=== PATIENT | male | born 1950 | race Caucasian/White ===

== ENCOUNTER 2020-11-09 08:22 | Outpatient (REF) | payer MEDICARE, SELFPAY ==
[2020-11-09 09:19] LABS: MANUAL DIFF FLAG NO
[2020-11-09 09:23] LABS: Basophils Absolute Auto 0.1 X10*3/uL (0.0-0.2); Eosinophils Absolute Auto 0.3 X10*3/uL (0.0-0.4); Eosinophils Percent Auto 3.3 % (0-4); Hemoglobin 12.8 g/dl (14.0-18.0); Imm Gran Abs Auto 0.02 X10*3/uL (0.00-0.03); Imm Gran Pct Auto 0.2 % (0.0-0.4); Lymphocytes Absolute Auto 2.9 X10*3/uL (1.2-4.9); Lymphocytes Percent Auto 32.1 % (20-40); Mean Corpuscular HGB Conc 32.8 g/dl (31.0-36.0); Mean Corpuscular Hemoglobin 33.7 pg (27.0-33.0); Mean Corpuscular Volume 102.6 fL (80-98); Mean Platelet Volume 10.5 fL (9.4-12.4); Monocytes Absolute Auto 0.6 X10*3/uL (0.1-1.2); Monocytes Percent Auto 6.9 % (2-11); Neutrophils Absolute Auto 5.2 X10*3/uL (2.0-8.3); Neutrophils Percent Auto 56.5 % (45-73); Platelet Count 197 X10*3/uL (160-400); Red Cell Distribution Width 12.7 % (11.0-16.0); White Blood Count 9.1 X10*3/uL (4.8-10.8)
[2020-11-09 09:50] LABS: Alanine Aminotransferase 11 U/L (0-40); Albumin Level 4.2 g/dL (3.5-5.0); Alkaline Phosphatase 77 U/L (39-117); Anion Gap 12 (12-20); Aspartate Amino Transferase 16 U/L (5-37); Bilirubin Total 0.5 mg/dL (0.0-1.0); Blood Urea Nitrogen 12 mg/dL (9-16); Calcium 9.3 mg/dL (8.4-10.2); Carbon Dioxide 22 mmol/L (22-29); Chloride 109 mmol/L (96-108); Cholesterol 133 mg/dL; Estimated Glomerular Filt Rate > 60; Glucose Random 86 mg/dL (60-115); HDL Cholesterol 38 mg/dL; LDL Cholesterol Calculated 72 mg/dl; Potassium 4.3 mmol/L (3.3-5.1); Sodium 139 mmol/L (135-145); Total Protein 6.9 g/dL (6.5-8.0); Triglycerides 115 mg/dL
[2020-11-09 10:13] LABS: Free T4 (Free Thyroxine) 0.79 ng/dL (0.71-1.85); Thyroid Stimulating Hormone 1.77 uIU/mL (0.32-4.0)
[2020-11-09 10:28] LABS: Folate > 20.0 ng/mL (> or = 4.0); Vitamin B12 168 pg/mL (200-900)
== END 2020-11-09 08:23 | disposition home or self-care (01) ==
LOC: HO.LAB 08:22
PROVIDERS: PCP Internal Medicine; Visit Provider Internal Medicine
DX: I10 Essential (primary) hypertension (principal); E78.00 Pure hypercholesterolemia, unspecified; I25.10 Atherosclerotic heart disease of native coronary artery without angina pectoris
CPT/HCPCS: 36415; 80053; 80061; 82607; 82746; 84439; 84443; 85025

== ENCOUNTER 2023-07-03 10:54 | Outpatient (AMB) | payer MEDICARE, SELFPAY ==
--- NOTE | 2023-07-03 11:02 | A.OFFPC_ITS ---
Vital Signs 07/03/23 11:05 Height 6 ft 4 in Weight 98.43 kg BMI 26.4 BP 112/66 Blood Pressure Location Lt brachial Position Sitting Pulse 65 Pulse Source Pulse Oximeter Pulse Oximetry (%) 97 Oxygen Delivery Method Room Air Intake Visit Reasons: Med review Intake Note: Patient is here to follow up on medication review. [place] Tender Required: No Field Account Director: Not Required per policy Accompanied by: Self / Same As Patient Allergies penicillin V Allergy (Unknown, Verified 07/03/23 11:04) Unknown Penicillins [PENICILLINS] Allergy (Unknown, Verified 07/03/23 11:04) UNKNOWN PCN Allergy (Unknown, Uncoded 07/03/23 11:04) throat Tobacco use date assessed: 07/03/23 Fall risk assessment: No Falls in past year Last assessed Fall Risk: 07/03/23 Dental Screening Dental Screen Date: 07/03/23 Did you have a dental visit in the last 12 months?: Yes Did you have a dental problem in the last 6 months where you did not have access to dental care?: No Was dental information given to patient?: Patient has dentist HPI Med review HPI Details 72-year-old overweight male smoker with hypertension hypercholesterolemia coronary artery disease lumbar degenerative disc disease coming in for follow-up. Review of the notes has been follow-up with cardiology echocardiogram done January 2023 showing normal left ventricular size left ventricular hypertrophy ejection fraction of 50% ascending aorta 3.6 sinus us of Valsalva 3.[address] Ferraro patient has seen the nurse practitioner in November 2021 patient has lumbar degenerative disc disease with posterior facet rhizotomy with lumbar fusion done April 2018. Dr. Singh echo done recently. smokes still a pack a day. does marijuana also. [facility] Medical History (Updated 07/03/23 @ 11:36 by Stevie Oneill MD) Screening for diabetes mellitus Screening for prostate cancer Closed right clavicular fracture Tubular adenoma of colon Fatty liver PTSD (post-traumatic stress disorder) Lumbar degenerative disc disease Coronary artery disease Obesity (BMI 30-39.9) Tobacco abuse Hypercholesterolemia Hypertension Surgical History History of colonoscopy History of back surgery History of ear surgery Family History Mother No problems noted. Father No problems noted. Social History (Updated 07/03/23 @ 11:33 by Stevie Oneill MD) Housing: House Alcohol intake: current Alcohol intake frequency: a few times a week Alcohol type: beer Comment: 6 pack in a week red wine whisky Patient Tobacco Use Status: Current everyday Tobacco user Tobacco use type: Cigarette Cigarette Packs Per Day: 1 Cigarettes Per Day: 20 e-Cigarette/Vaping Use: Never Used Second Hand Smoke Exposure: Yes Substance Use Type: Marijuana Substance Use Frequency: Daily service: Yes Current occupational status: retired and disabled Cognitive needs: No Hearing needs: No Vision needs: Yes (reading glasses) Questionnaire PHQ-9 Over the last 2 weeks, how often have you been bothered by any of the following problems? 1. Little interest or pleasure in doing things: not at all 2. Feeling down, depressed, or hopeless: not at all 3. Trouble falling or staying asleep, or sleeping too much: not at all 4. Feeling tired or having little energy: not at all 5. Poor appetite or overeating: not at all 6. Feeling bad about yourself - or that you are a failure or have let yourself or your family down: not at all 7. Trouble concentrating on things, such as reading the newspaper or watching television: not at all 8. Moving or speaking so slowly that other people could have noticed. Or the opposite - being so fidgety or restless that you have been moving around a lot more than usual: not at all 9. Thoughts that you would be better off or of hurting yourself in some way: not at all Total score: 0 Depression Screening Interpretation: Negative Depression Screening Done: Yes Source: Developed by Drs. Tyler Pemberton, Alissa Rodriguez, Johnathon Beckford and colleagues, with an educational amie from [employer]. Thrive Questionnaire Date Thrive assessed: 07/03/23 I am a: Patient What is your living situation today?: I have a steady place to live Within the past 12 months, did the food you bought not last and you didn't have the money to get more?: Never true Within the past 12 months, did you worry whether your food would run out before you got money to buy more?: Never true Do you have trouble paying for medicines?: No Do you have trouble getting transportation to medical appointments?: No Do you have trouble paying your heating and electricity bill?: No Do you have trouble taking care of your child, family member or friend?: No Do you have trouble with day-to-day activities such as bathing, preparing meals, shopping, managing finances, etc.?: No Are you currently unemployed and looking for a job?: No Are you interested in more education?: No Currently or been in a relationship where the following occur: no concerns reported THRIVE Score: 0 AUDIT C Alcohol Use Questionnaire (AUDIT-C) 1. How often do you have a drink containing alcohol?: Never Total Score: 0 MARGRET-7 AMB Questionnaire MARGRET-7 Date MARGRET - 7 assessed: 07/03/23 Feeling nervous, anxious, or on edge: 0 = Not at all Not being able to stop or control worryin = Not at all Worrying too much about different things: 0 = Not at all Trouble relaxin = Not at all Being so restless that it is hard to sit still: 0 = Not at all Becoming easily annoyed or irritable: 0 = Not at all Feeling afraid as if something awful might happen: 0 = Not at all Total MARGRET-7 score (0-4 normal; 5-9 mild; 10-14 moderate; 15-21 severe): 0 Source: Developed by Drs. Tyler Pemberton, Alissa Rodriguez, Johnathon Beckford and colleagues, with an educational amie from [employer]. Physical exam (Primary Care) Vital Signs: Last Vital Signs Pulse 65 07/03/23 11:05 BP 112/66 07/03/23 11:05 Pulse Ox 97 07/03/23 11:05 Oxygen Delivery Method Room Air 07/03/23 11:05 BMI result Body Mass Index 26.4 Tobacco/Smoking Status: Tobacco use Status Tobacco use date assessed 07/03/23 07/03/23 11:13 Patient Tobacco Use Status Current everyday Tobacco 07/03/23 11:33 Tobacco use type Cigarette 07/03/23 11:33 e-Cigarette/Vaping Use Never Used 07/03/23 11:33 PHQ-9: PHQ-9 Score PHQ-9: Total score 0 07/03/23 11:23 Depression Screening Interpretation: Negative Thrive Assessment: Date of Thrive Assessment Date Thrive assessed 07/03/23 07/03/23 11:04 Currently or been in a relationship where the following occur: no concerns reported Const General: alert; No acute distress Eyes Conjunctivae: conjunctivae normal Resp Auscultation: clear to auscultation bilaterally Cardio Rate: regular rate Rhythm: regular rhythm GI Inspection: Yes normal to inspection Extrem General: Yes normal to inspection and No edema Immunizations pneumoc 20-shonda conj-dip cr(PF) 0.5 mL IM syringe Performing Provider: Stevie Oneill MD Performing Location: [facility] Administered by: Eve Kaiser CMA on 07/03/23 11:42 Dose Route Admin Location Dispensed Lot Number Expiration Date [employer] 0.5 mL IM Left Deltoid 0.5 mL [id number] 06/11/24 4768-0206-25 [employer] VIS Given Date VIS Provided VIS Publication Date 07/03/23 Single Vaccine 21 Eligibility Eligibility Date Funding Source Not [facility] Eligible 07/03/23 Private Assessment and Plan Assessment & Plan (1) Coronary artery disease: Comment: Myocardial infarction 2013 Dr. Singh stress 2017 stent placement\ Echocardiogram January 2023 normal left ventricular size mild concentric left ventricular hypertrophy EF 50% ascending aorta 3.6 sinus of Valsalva 3.9 Code(s): I25.10 - Atherosclerotic heart disease of [place] coronary artery without angina pectoris Plan: Control the cholesterol, weight, blood pressure, presently on clopidogrel (2) Hypertension: Code(s): I10 - Essential (primary) hypertension Plan: Continue with blood pressure medication. Decrease salt intake and exercise amlodipine 5 mg once a day lisinopril 10 mg once a day and metoprolol 100 mg once a day (3) Hypercholesterolemia: Code(s): E78.00 - Pure hypercholesterolemia, unspecified Plan: Avoid fried foods, chicken skin, eggs, butter margarine, pastries and meat. Be it pork or beef they have a lot of cholesterol LDL goal of less than 70 and triglyceride of less than 150. (4) Tobacco abuse: Code(s): Z72.0 - Tobacco use Plan: Patient is strongly advised to stop smoking. (5) Lumbar degenerative disc disease: Comment: [facility] 1996, Dr. Crowposterior facetotomy with lumbar fusion April 2018 Code(s): M51.36 - Other intervertebral disc degeneration, lumbar region Plan: Lose the weight and keep active (6) Colonoscopy refused: Code(s): Z53.20 - Procedure and treatment not carried out because of patient's decision for unspecified reasons Orders: Orders Comprehensive Met. Panel Today E78.00 - Pure hypercholesterolemia, unspecified Lipid Panel Today E78.00 - Pure hypercholesterolemia, unspecified Complete Blood Count Auto Diff Today E78.00 - Pure hypercholesterolemia, unspecified Free T4 (Free Thyroxine) Today E78.00 - Pure hypercholesterolemia, unspecified Thyroid Stimulating Hormone Today E78.00 - Pure hypercholesterolemia, unspecified Vitamin B12 and Folate Today E78.00 - Pure hypercholesterolemia, unspecified Pneumococcal 20 Immunization Today Z23 - Encounter for immunization Coding Level of Care Code Est Pt Level 4 (18091) Diagnoses Coronary artery disease I25.10 Hypertension I10 Hypercholesterolemia E78.00 Tobacco abuse Z72.0 Lumbar degenerative disc disease M51.36 Colonoscopy refused Z53.20
[2023-07-03 11:05] VITALS: BP 112/66; PULSE 65; O2SAT 97; BMI 26.4
== END 2023-07-03 11:54 | disposition home or self-care (01) ==
PROVIDERS: PCP Internal Medicine; Visit Provider Internal Medicine
DX: I25.10 Atherosclerotic heart disease of native coronary artery without angina pectoris (principal); I10 Essential (primary) hypertension; E78.00 Pure hypercholesterolemia, unspecified; Z72.0 Tobacco use; M51.36 Other intervertebral disc degeneration, lumbar region; Z53.20 Procedure and treatment not carried out because of patient's decision for unspecified reasons; Z23 Encounter for immunization
CPT/HCPCS: 90471; 90677; 99214

== ENCOUNTER 2024-07-04 09:07 | Outpatient (AMB) | payer MEDICARE, SELFPAY ==
[2024-07-04 09:18] VITALS: BP 130/72; PULSE 67; TEMP 36.2; O2SAT 100; BMI 25.2
--- NOTE | 2024-07-04 09:18 | A.OFFPC_ITS ---
Vital Signs 07/04/24 09:18 Height 6 ft 4 in Weight 207 lb BMI 25.2 BP 130/72 Blood Pressure Location Lt brachial Position Sitting Pulse 67 Pulse Source Pulse Oximeter Temp 97.1 F Temp Source Temporal Artery Scan Pulse Oximetry (%) 100 Oxygen Delivery Method Room Air Intake Visit Reasons: 1 y/r follow up Accompanied by: Self / Same As Patient Allergies penicillin V Allergy (Unknown, Verified 07/04/24 09:25) Unknown Penicillins [PENICILLINS] Allergy (Unknown, Verified 07/04/24 09:25) UNKNOWN PCN Allergy (Unknown, Uncoded 07/04/24 09:25) throat Medication List - Last Reconciled 07/04/24 by Stevie Oneill MD amlodipine 5 mg PO DAILY aspirin 81 mg PO DAILY folic acid 1 mg PO DAILY lisinopril 10 mg PO DAILY metoprolol succinate ER 100 mg PO DAILY rosuvastatin 20 mg PO DAILY Tobacco use date assessed: 07/04/24 Fall risk assessment: No Falls in past year Last assessed Fall Risk: 07/04/24 Dental Screening Dental Screen Date: 07/04/24 Did you have a dental visit in the last 12 months?: No Did you have a dental problem in the last 6 months where you did not have access to dental care?: No Was dental information given to patient?: No HPI 1 y/r follow up HPI Details 73-year-old male noted 10 lb weight loss with smoker hypertension hypercholesterolemia coronary artery disease lumbar degenerative disc disease coming in for follow-up. Patient was last seen in June 2023 patient had colonoscopy done with tubular adenoma in 2012 and was advised repeat but patient declined. Review of the notes patient was last seen by Cardiology in January 2022 myocardial infarction in 2012 drug-eluting stent implantation lad occlu jenifer. Patient's last blood work was in 2020 with anemia creatinine is 1.13 LDL of 72 vitamin B12 is low.- 2022 states did not see cardiology yet. [facility] Medical History (Updated 07/03/23 @ 11:36 by Stevie Oneill MD) Screening for diabetes mellitus Screening for prostate cancer Closed right clavicular fracture Tubular adenoma of colon Fatty liver PTSD (post-traumatic stress disorder) Lumbar degenerative disc disease Coronary artery disease Obesity (BMI 30-39.9) Tobacco abuse Hypercholesterolemia Hypertension Surgical History History of colonoscopy History of back surgery History of ear surgery Family History Mother No problems noted. Father No problems noted. Social History Housing: House Alcohol intake: current Alcohol intake frequency: a few times a week Alcohol type: beer Comment: 6 pack in a week red wine whisky Patient Tobacco Use Status: Current everyday Tobacco user Tobacco use type: Cigarette Cigarette Packs Per Day: 1 Cigarettes Per Day: 20 e-Cigarette/Vaping Use: Never Used Second Hand Smoke Exposure: Yes Substance Use Type: Marijuana service: Yes Current occupational status: retired and disabled Cognitive needs: No Hearing needs: No Vision needs: Yes (reading glasses) Questionnaire PHQ-9 Over the last 2 weeks, how often have you been bothered by any of the following problems? 1. Little interest or pleasure in doing things: not at all 2. Feeling down, depressed, or hopeless: not at all 3. Trouble falling or staying asleep, or sleeping too much: not at all 4. Feeling tired or having little energy: not at all 5. Poor appetite or overeating: not at all 6. Feeling bad about yourself - or that you are a failure or have let yourself or your family down: not at all 7. Trouble concentrating on things, such as reading the newspaper or watching television: not at all 8. Moving or speaking so slowly that other people could have noticed. Or the opposite - being so fidgety or restless that you have been moving around a lot more than usual: not at all 9. Thoughts that you would be better off or of hurting yourself in some way: not at all Total score: 0 Depression Screening Interpretation: Negative Depression Screening Done: Yes 76904 - PHQ-9 Billing: Yes Source: Developed by Drs. Tyler Pemberton, Alissa Rodriguez, Johnathon Beckford and colleagues, with an educational amie from [employer]. Thrive Questionnaire Date Thrive assessed: 07/04/24 I am a: Patient What is your living situation today?: I have a steady place to live Within the past 12 months, did the food you bought not last and you didn't have the money to get more?: Never true Within the past 12 months, did you worry whether your food would run out before you got money to buy more?: Never true Do you have trouble paying for medicines?: No Do you have trouble getting transportation to medical appointments?: No Do you have trouble paying your heating and electricity bill?: No Do you have trouble taking care of your child, family member or friend?: No Do you have trouble with day-to-day activities such as bathing, preparing meals, shopping, managing finances, etc.?: No Are you currently unemployed and looking for a job?: No Are you interested in more education?: No Please select the resources that you would like help with: None Currently or been in a relationship where the following occur: No concerns reported THRIVE Score: 0 AUDIT C Alcohol Use Questionnaire (AUDIT-C) 1. How often do you have a drink containing alcohol?: 2-4 times a month 2. How many drinks containing alcohol do you have on a typical day when you are drinking?: 5 or 6 3. How often do you have six or more drinks on one occasion?: Never Total Score: 4 MARGRET-7 AMB Questionnaire MARGRET-7 Date MARGRET - 7 assessed: 07/04/24 ([facility] suffers from [facility] Feeling nervous, anxious, or on edge: 0 = Not at all Not being able to stop or control worryin = Not at all Worrying too much about different things: 0 = Not at all Trouble relaxin = Not at all Being so restless that it is hard to sit still: 0 = Not at all Becoming easily annoyed or irritable: 0 = Not at all Feeling afraid as if something awful might happen: 0 = Not at all Total MARGRET-7 score (0-4 normal; 5-9 mild; 10-14 moderate; 15-21 severe): 0 Source: Developed by Drs. Tyler Pemberton, Alissa Rodriguez, Johnathon Beckford and colleagues, with an educational amie from [employer]. MARGRET-7 Assessment Billing MARGRET-7 Assessment Tool: MARGRET-7 Assessment 95613 Physical exam (Primary Care) Vital Signs: Last Vital Signs Temp 97.1 F 07/04/24 09:18 Pulse 67 07/04/24 09:18 BP 130/72 07/04/24 09:18 Pulse Ox 100 07/04/24 09:18 Oxygen Delivery Method Room Air 07/04/24 09:18 BMI result Body Mass Index 25.2 Tobacco/Smoking Status: Tobacco use Status Tobacco use date assessed 07/04/24 07/04/24 09:25 Patient Tobacco Use Status Current everyday Tobacco 07/04/24 09:25 Tobacco use type Cigarette 07/04/24 09:25 e-Cigarette/Vaping Use Never Used 07/04/24 09:25 PHQ-9: PHQ-9 Score PHQ-9: Total score 0 07/04/24 09:25 Depression Screening Interpretation: Negative Thrive Assessment: Date of Thrive Assessment Date Thrive assessed 07/04/24 07/04/24 09:25 Currently or been in a relationship where the following occur: No concerns reported Const General: alert; No acute distress Eyes Conjunctivae: conjunctivae normal Resp Auscultation: clear to auscultation bilaterally Cardio Rate: regular rate Rhythm: regular rhythm GI Inspection: Yes normal to inspection Extrem General: Yes normal to inspection and No edema Coding Level of Care Code Est Pt Level 4 (81060) Complex EM visit Add On G2211 Diagnoses Colonoscopy refused Z53.20 Coronary artery disease I25.10 Tobacco abuse Z72.0 Hypercholesterolemia E78.00 Hypertension I10 Additional Codes MARGRET-7 Assessment Billing - MARGRET-7 Assessment Tool: MARGRET-7 Assessment 64324 ([id number]) PHQ-9 - 86822 - PHQ-9 Billing: Yes ([id number]) Assessment & Plan Assessment & Plan (1) Colonoscopy refused: Code(s): Z53.20 - Procedure and treatment not carried out because of patient's decision for unspecified reasons Category: Medical Plan: Patient has been reminded that patient had a tubular adenoma on colonoscopy in 2012 (2) Coronary artery disease: Comment: Myocardial infarction 2013 Dr. Singh stress 2017 stent placement\ Echocardiogram January 2023 normal left ventricular size mild concentric left ve ntricular hypertrophy EF 50% ascending aorta 3.6 sinus of Valsalva 3.9 Code(s): I25.10 - Atherosclerotic heart disease of [place] coronary artery without angina pectoris Category: Medical Plan: Control the cholesterol, weight, blood pressure, on aspirin only (3) Tobacco abuse: Code(s): Z72.0 - Tobacco use Category: Medical Plan: Patient is strongly advised to stop smoking (4) Hypercholesterolemia: Code(s): E78.00 - Pure hypercholesterolemia, unspecified Category: Medical Plan: Avoid fried foods, chicken skin, eggs, butter margarine, pastries and meat. Be it pork or beef they have a lot of cholesterol LDL goal of less than 70 and triglyceride of less than 150 on rosuvastatin 20 mg once a day patient needs to have blood work (5) Hypertension: Code(s): I10 - Essential (primary) hypertension Category: Medical Plan: Continue with blood pressure medication. Decrease salt intake and exercise on lisinopril amlodipine and metoprolol blood pressure is controlled Orders: Orders Complete Blood Count Auto Diff Today I25.10 - Atherosclerotic heart disease of [place] coronary artery without angina pectoris Free T4 (Free Thyroxine) Today I25.10 - Atherosclerotic heart disease of [place] coronary artery without angina pectoris Comprehensive Met. Panel Today I25.10 - Atherosclerotic heart disease of [place] coronary artery without angina pectoris Thyroid Stimulating Hormone Today I25.10 - Atherosclerotic heart disease of [place] coronary artery without angina pectoris Lipid Panel Today E78.00 - Pure hypercholesterolemia, unspecified, I25.10 - Atherosclerotic heart disease of [place] coronary artery without angina pectoris Ferritin Today I25.10 - Atherosclerotic heart disease of [place] coronary artery without angina pectoris Reticulocyte Count Today I25.10 - Atherosclerotic heart disease of [place] coronary artery without angina pectoris IRON PROFILE Today I25.10 - Atherosclerotic heart disease of [place] coronary artery without angina pectoris Vitamin B12 and Folate Today I25.10 - Atherosclerotic heart disease of [place] coronary artery without angina pectoris
== END 2024-07-04 10:20 | disposition home or self-care (01) ==
LOC: HO.HMCH 09:08
PROVIDERS: PCP Internal Medicine; Visit Provider Internal Medicine
DX: Z53.20 Procedure and treatment not carried out because of patient's decision for unspecified reasons (principal); I25.10 Atherosclerotic heart disease of native coronary artery without angina pectoris; Z72.0 Tobacco use; E78.00 Pure hypercholesterolemia, unspecified; I10 Essential (primary) hypertension

== ENCOUNTER → 2024-07-04 09:07 | Outpatient (BNVA) | payer MEDICARE, SELFPAY | PROVIDERS: PCP Internal Medicine; Visit Provider Internal Medicine | DX: I25.10 Atherosclerotic heart disease of native coronary artery without angina pectoris (principal); E78.00 Pure hypercholesterolemia, unspecified; I10 Essential (primary) hypertension; Z72.0 Tobacco use | CPT/HCPCS: 96127; 99212 ==

== ENCOUNTER 2024-07-26 07:50 | Outpatient (REF) | payer MEDICARE, SELFPAY ==
--- OUTSIDE RECORDS SUMMARY | 2024-07-26 07:56 | XMS_ITS | Continuity of Care Document ---
Author Name [facility] Organization [facility] Care Team Providers Care Warehouse Handler Name Role Phone [facility] Unavailable Unavailable Problems Combined list of problems [...] reactions to drug (finding) Eruption active 8 [place] [facility] [place] [facility] PENICILLIN Propensity to adverse reactions to drug (finding) active 8 [facility]
[2024-07-26 08:06] LABS: MANUAL DIFF FLAG NO
[2024-07-26 08:17] LABS: Basophils Absolute Auto 0.1 X10*3/uL (0.0-0.2); Basophils Percent Auto 0.9 % (0-2); Eosinophils Absolute Auto 0.2 X10*3/uL (0.0-0.4); Hematocrit 37.3 % (42.0-52.0); Hemoglobin 12.3 g/dl (14.0-18.0); Imm Gran Abs Auto 0.05 X10*3/uL (0.00-0.03); Imm Gran Pct Auto 0.6 % (0.0-0.4); Immature Retic Fraction 11.6 % (2.3-13.4); Lymphocytes Percent Auto 34.8 % (20-40); Mean Corpuscular Hemoglobin 32.3 pg (27.0-33.0); Mean Corpuscular Volume 97.9 fL (80.0-98.0); Mean Platelet Volume 9.5 fL (9.4-12.4); Monocytes Absolute Auto 0.4 X10*3/uL (0.1-1.2); Monocytes Percent Auto 5.1 % (2-11); Neutrophils Absolute Auto 4.9 x10*3/uL (2.0-8.3); Neutrophils Percent Auto 56.6 % (45-73); Platelet Count 279 X10*3/uL (160-400); Red Blood Count 3.81 X10*6/uL (4.60-5.80); Red Cell Distribution Width 12.8 % (11.0-16.0); Retic HGB Equivalent 35.3 pg (30.0-35.0); Reticulocyte Percent 1.1 % (0.5-1.8); Reticulocytes Absolute 0.042 X10*6/uL (0.026-0.095); White Blood Count 8.6 X10*3/uL (4.8-10.8)
[2024-07-26 08:45] LABS: Alanine Aminotransferase 25 U/L (0-40); Albumin Level 3.4 g/dL (3.5-5.0); Alkaline Phosphatase 73 U/L (39-117); Anion Gap 12 (12-20); Aspartate Amino Transferase 25 U/L (5-37); Bilirubin Total 0.3 mg/dL (0.0-1.0); Blood Urea Nitrogen 12 mg/dL (9-16); Carbon Dioxide 18 mmol/L (22-29); Chloride 112 mmol/L (96-108); Cholesterol 102 mg/dL (<200); Estimated Glomerular Filt Rate > 60; Glucose Random 90 mg/dL (60-115); HDL Cholesterol 29 mg/dL (>40); Iron 53 mcg/dL (45-160); LDL Cholesterol Calculated 52 mg/dL (<100); Percent Iron Saturation 25 % (15-50); Potassium 4.2 mmol/L (3.3-5.1); Sodium 138 mmol/L (135-145); Total Iron Binding Capacity 209 mcg/dL (228-428); Total Protein 6.6 g/dL (6.5-8.0); Triglycerides 107 mg/dL (<150); Unsaturated Iron Binding 156 ug/dL
[2024-07-26 09:02] LABS: Ferritin 452 ng/mL (20-250); Free T4 (Free Thyroxine) 0.92 ng/dL (0.71-1.85); Thyroid Stimulating Hormone 2.36 uIU/mL (0.32-4.0)
[2024-07-26 09:13] LABS: Folate 17.9 ng/mL (> or = 4.0); Vitamin B12 282 pg/mL (200-900)
== END 2024-07-26 07:51 | disposition home or self-care (01) ==
LOC: HO.LAB 07:50
PROVIDERS: PCP Internal Medicine; Visit Provider Internal Medicine
DX: I25.10 Atherosclerotic heart disease of native coronary artery without angina pectoris (principal); E78.00 Pure hypercholesterolemia, unspecified
CPT/HCPCS: 36415; 80053; 80061; 82607; 82728; 82746; 83540; 84439; 84443; 85025; 85045

== ENCOUNTER 2024-10-25 09:50 | Outpatient (AMB) | payer MEDICARE, SELFPAY ==
--- OUTSIDE RECORDS SUMMARY | 2018-02-02 07:12 | XMS_ITS | Continuity of Care Document ---
Author Name [facility] Organization [facility] Care Team Providers Care Web Mobile Designer Name Role Phone [facility] Unavailable Unavailable Problems Combined list of problems from Department of Defense and Veterans Affairs facilities. It does not include entries that were removed or entered in error. Problem Status Onset Date Problem Type Date of Resolution Comments Source Posttraumatic stress disorder Active Condition [place] Allergies, Adverse Reactions, Alerts Combined list of allergies from Department of Defense and Veterans Affairs facilities. It does not include entries that were removed or entered in error. Substance Category Reaction Severity Reaction type Status Date Reported Comments Source PENICILLIN Propensity to adverse reactions to drug (finding) Eruption active 8 [place] [facility] [place] [facility] PENICILLIN Propensity to adverse reactions to drug (finding) active 8 [facility]
--- NOTE | 2024-10-25 09:51 | MHC.PC.OV ---
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 Accompanied by: Self / Same As Patient Allergies penicillin V Allergy (Unknown, Verified 10/25/24 09:55) Unknown Penicillins (PENICILLINS) Allergy (Unknown, Verified 10/25/24 09:55) UNKNOWN PCN Allergy (Unknown, Uncoded 07/04/24 09:25) throat Medication List - Last Reconciled 10/25/24 by Stevie Oneill MD amlodipine 5 mg PO DAILY aspirin 81 mg PO DAILY empagliflozin (Jardiance) 10 mg PO DAILY folic acid 1 mg PO DAILY lisinopril 10 mg PO DAILY metoprolol succinate ER 100 mg PO DAILY rosuvastatin 20 mg PO DAILY Tobacco use date assessed: 07/04/24 Fall risk assessment: No Falls in past year Last assessed Fall Risk: 10/25/24 Dental Screening Dental Screen Date: 07/04/24 [facility] Medical History (Updated 10/25/24 @ 10:27 by Stevie Oneill MD) Screening for diabetes mellitus Screening for prostate cancer Closed right clavicular fracture Tubular adenoma of colon Fatty liver PTSD (post-traumatic stress disorder) Lumbar degenerative disc disease Coronary artery disease Obesity (BMI 30-39.9) Tobacco abuse Hypercholesterolemia Hypertension Surgical History History of colonoscopy History of back surgery History of ear surgery Family History Mother No problems noted. Father No problems noted. Social History Housing: House Alcohol intake: current Alcohol intake frequency: a few times a week Alcohol type: beer Comment: 6 pack in a week red wine whisky Patient Tobacco Use Status: Current everyday Tobacco user Tobacco use type: Cigarette Cigarette Packs Per Day: 1 Cigarettes Per Day: 20 e-Cigarette/Vaping Use: Never Used Second Hand Smoke Exposure: Yes Substance Use Type: Marijuana service: Yes Current occupational status: retired and disabled Cognitive needs: No Hearing needs: No Vision needs: Yes (reading glasses) Questionnaire PHQ-9 Over the last 2 weeks, how often have you been bothered by any of the following problems? 1. Little interest or pleasure in doing things: not at all 2. Feeling down, depressed, or hopeless: not at all 3. Trouble falling or staying asleep, or sleeping too much: not at all 4. Feeling tired or having little energy: not at all 5. Poor appetite or overeating: not at all 6. Feeling bad about yourself - or that you are a failure or have let yourself or your family down: not at all 7. Trouble concentrating on things, such as reading the newspaper or watching television: not at all 8. Moving or speaking so slowly that other people could have noticed. Or the opposite - being so fidgety or restless that you have been moving around a lot more than usual: not at all 9. Thoughts that you would be better off or of hurting yourself in some way: not at all Total score: 0 Source: Developed by Drs. Tyler Pemberton, Alissa Rodriguez, Johnathon Beckford and colleagues, with an educational amie from [email or web address]. Thrive Questionnaire Date Thrive assessed: 10/25/24 I am a: Patient What is your living situation today?: I have a steady place to live Within the past 12 months, did the food you bought not last and you didn't have the money to get more?: I choose not to answer this question Within the past 12 months, did you worry whether your food would run out before you got money to buy more?: I choose not to answer this question Do you have trouble paying for medicines?: I choose not to answer this question Do you have trouble getting transportation to medical appointments?: I choose not to answer this question Do you have trouble paying your heating and electricity bill?: I choose not to answer this question Do you have trouble taking care of your child, family member or friend?: I choose not to answer this question Do you have trouble with day-to-day activities such as bathing, preparing meals, shopping, managing finances, etc.?: I choose not to answer this question THRIVE Score: 0 MARGRET-7 AMB Questionnaire MARGRET-7 Date MARGRET - 7 assessed: 07/04/24 (Patient suffers from PTSD and [facility] Source: Developed by Drs. Tyler Pemberton, Alissa Rodriguez, Johnathon Beckford and colleagues, with an educational amie from [email or web address]. Physical exam (Primary Care) Vital Signs: Last Vital Signs Pulse 86 10/25/24 09:52 BP 110/68 10/25/24 09:52 Pulse Ox 99 10/25/24 09:52 Oxygen Delivery Method Room Air 10/25/24 09:52 BMI result Body Mass Index 24.7 Tobacco/Smoking Status: Tobacco use Status Tobacco use date assessed 07/04/24 10/25/24 09:58 Patient Tobacco Use Status Current everyday Tobacco 10/25/24 09:58 Tobacco use type Cigarette 10/25/24 09:58 e-Cigarette/Vaping Use Never Used 10/25/24 09:58 PHQ-9: PHQ-9 Score PHQ-9: Total score 0 10/25/24 10:25 Thrive Assessment: Date of Thrive Assessment Date Thrive assessed 10/25/24 10/25/24 09:58 Const General: alert; No acute distress Eyes Conjunctivae: conjunctivae normal Resp Auscultation: clear to auscultation bilaterally Cardio Rate: regular rate Rhythm: regular rhythm GI Inspection: Yes normal to inspection Extrem General: Yes normal to inspection and No edema Coding Level of Care Code Est Pt Level 4 (94249) Complex EM visit Add On G2211 Diagnoses Hypertension I10 Coronary artery disease I25.10 Hypercholesterolemia E78.00 Tobacco abuse Z72.0 Ischemic cardiomyopathy I25.5 Assessment & Plan Assessment & Plan (1) Hypertension: Code(s): I10 - Essential (primary) hypertension Category: Medical Plan: Continue with blood pressure medication. Decrease salt intake and exercise on amlodipine 5 mg once a day lisinopril 10 mg once a day metoprolol 100 mg once a day (2) Coronary artery disease: Comment: Myocardial infarction 2013 Dr. Singh stress 2017 stent placement\ Echocardiogram January 2023 normal left ventricular size mild concentric left ventricular hypertrophy EF 50% ascending aorta 3.6 sinus of Valsalva 3.9 Code(s): I25.10 - Atherosclerotic heart disease of [place] coronary artery without angina pectoris Category: Medical Plan: Control the cholesterol, weight, blood pressure continue with aspirin 81 mg once a day (3) Hypercholesterolemia: Code(s): E78.00 - Pure hypercholesterolemia, unspecified Category: Medical Plan: Avoid fried foods, chicken skin, eggs, butter margarine, pastries and meat. Be it pork or beef they have a lot of cholesterol LDL goal of less than 70 and triglyceride of less than 150 July 2024 last blood work on rosuvastatin 20 mg once a day (4) Tobacco abuse: Code(s): Z72.0 - Tobacco use Category: Medical (5) Ischemic cardiomyopathy: Code(s): I25.5 - Ischemic cardiomyopathy Category: Medical Plan History of Present Illness The patient is a 74-year-old male presenting for follow-up of chronic conditions including hypertension, hypercholesterolemia, and coronary artery disease. The patient has a history of hypertension and hypercholesterolemia, managed with medications including amlodipine, lisinopril, and rosuvastatin. He has been on metoprolol for coronary artery disease, with a recent echocardiogram showing normal left ventricular function. The test consultant recommended considering an SGLT2 inhibitor for additional cardiac benefit. The patient reports a 4-pound weight loss since his last visit and continues to smoke tobacco, expressing no intention to quit despite discussions about its health risks. He also smokes cannabis and grows his own plants, citing concerns about commercially available products. Blood work from July 2024 indicated mild anemia with a hemoglobin level of 12.3 g/dL and low vitamin B12 levels. Other lab results showed normal electrolytes, renal function, blood sugar, and liver function, with an LDL cholesterol level of 52 mg/dL. Health Maintenance - Preventative care: Colon cancer screening declined - Cardiovascular risk reduction: Continued use of rosuvastatin and consideration of SGLT2 inhibitor - Vaccination: Shingles vaccine received three weeks ago Social History - Tobacco use: Patient is a current smoker and has no intention to quit. - Cannabis use: Patient smokes cannabis and grows his own plants for personal use. Review of Systems - General: Reports 4-pound weight loss since last visit. - Respiratory: Denies any new respiratory symptoms. Physical Exam - Respiratory: Regular breathing observed. Results - Labs: Mild anemia with hemoglobin 12.3 g/dL, low vitamin B12, normal electrolytes, renal function, blood sugar, liver function, LDL cholesterol 52 mg/dL. - Imaging: Echocardiogram showing normal left ventricular function. Plan The management plan includes continuing current antihypertensive therapy with amlodipine, lisinopril, and metoprolol to maintain blood pressure control. For hypercholesterolemia, the patient will continue rosuvastatin with a goal LDL of less than 70 mg/dL and triglycerides less than 150 mg/dL. For coronary artery disease, aspirin 81 mg daily is recommended, and the addition of an SGLT2 inhibitor is advised for further cardiac protection. The patient is advised to monitor for any adverse effects from the new medication and to ensure insurance coverage for the SGLT2 inhibitor. The patient is encouraged to reconsider smoking cessation due to its cardiovascular risks, despite his current stance on continuing tobacco use. A follow-up blood test is scheduled in three months to monitor anemia and vitamin levels, with a subsequent follow-up visit in six months. Patient was informed and verbally consented to the use of an ambient scribe for clinic note documentation during this visit. Discussion Notes During the visit, I discussed the importance of continuing antihypertensive and cholesterol-lowering medications to manage the patient's chronic conditions. We reviewed the test consultant's recommendation to add an SGLT2 inhibitor for coronary artery disease, and I explained its benefits and potential side effects. I advised the patient to monitor for any adverse reactions and to verify insurance coverage for the new medication. We also discussed the risks associated with smoking and the potential benefits of cessation, although the patient expressed a desire to continue smoking. I provided a follow-up plan, including a blood test in three months and a subsequent visit in six months to reassess his condition. Patient Instructions - Continue taking your blood pressure and cholesterol medications as prescribed. - Start the new medication as discussed and watch for any side effects. - Consider quitting smoking to improve your heart health. - Schedule a blood test in three months and a follow-up visit in six months. Orders: Orders Complete Blood Count Auto Diff 3 Months I25.10 - Atherosclerotic heart disease of [place] coronary artery without angina pectoris Comprehensive Met. Panel 3 Months I25.10 - Atherosclerotic heart disease of [place] coronary artery without angina pectoris Free T4 (Free Thyroxine) 3 Months I25.10 - Atherosclerotic heart disease of [place] coronary artery without angina pectoris Thyroid Stimulating Hormone 3 Months I25.10 - Atherosclerotic heart disease of [place] coronary artery without angina pectoris Vitamin B12 and Folate 3 Months I25.10 - Atherosclerotic heart disease of [place] coronary artery without angina pectoris Magnesium 3 Months I25.10 - Atherosclerotic heart disease of [place] coronary artery without angina pectoris Medications: New empagliflozin (Jardiance) 10 mg PO DAILY 30 tabs 2RF I25.5 - Ischemic cardiomyopathy Refilled rosuvastatin 20 mg PO DAILY 90 tabs 0RF lisinopril 10 mg PO DAILY 90 caps 3RF I25.5 - Ischemic cardiomyopathy amlodipine 5 mg PO DAILY 90 caps 3RF folic acid 1 mg PO DAILY 90 tabs 2RF
[2024-10-25 09:52] VITALS: BP 110/68; PULSE 86; O2SAT 99; BMI 24.7
== END 2024-10-25 10:38 | disposition home or self-care (01) ==
LOC: HO.HMCH 09:51
PROVIDERS: PCP Internal Medicine; Visit Provider Internal Medicine
DX: I10 Essential (primary) hypertension (principal); I25.10 Atherosclerotic heart disease of native coronary artery without angina pectoris; E78.00 Pure hypercholesterolemia, unspecified; Z72.0 Tobacco use; I25.5 Ischemic cardiomyopathy

== ENCOUNTER → 2024-10-25 09:50 | Outpatient (BNVA) | payer MEDICARE, SELFPAY | PROVIDERS: PCP Internal Medicine; Visit Provider Internal Medicine | DX: I10 Essential (primary) hypertension (principal); I25.10 Atherosclerotic heart disease of native coronary artery without angina pectoris; E78.00 Pure hypercholesterolemia, unspecified; I25.5 Ischemic cardiomyopathy; F17.200 Nicotine dependence, unspecified, uncomplicated; Z71.6 Tobacco abuse counseling | CPT/HCPCS: 99212 ==